=== PATIENT | male | born 1935 | race Caucasian/White ===

== ENCOUNTER 2016-11-16 13:40 | Emergency (ER) | payer MEDICARE, OTHER ==
[~2016-11-16] VITALS: Ht 172.7 cm; Wt 78.2 kg
[2016-11-16 13:43] VITALS: TEMP 97.5
[2016-11-16] MEDS ORDERED: TYLENOL 500MG500 MG PO (14:00)
[2016-11-16] MEDS ORDERED: CETAPHIL MOISTU1 CRE TP (14:00)
[2016-11-16] MEDS ORDERED: PROSCAR 5MG5 MG PO (14:01)
[2016-11-16] MEDS ORDERED: LANTUS SOLOS100 U/ML SQ (14:01)
[2016-11-16] MEDS ORDERED: GLUCOPHAGE1000 MG PO (14:02)
[2016-11-16] MEDS ORDERED: PRAVACHOL 40MG40 MG PO (14:02)
[2016-11-16] MEDS ORDERED: XARELTO15 MG PO (14:03)
[2016-11-16] MEDS ORDERED: PROTONIX 40MG T40 MG PO ×2 (14:11→18:25)
[2016-11-16 14:13] LABS: BASO % 0.4 % (0.0-2.0); EOS # 0.1 (0.0-0.7); EOS % 1.3 % (0-4.0); GRAN # 5.8 (1.4-6.5); GRAN % 64.6 % (42.2-75.2); HEMATOCRIT 46.6 % (42.0-52.0); LYMPH # 2.1 (1.2-3.4); LYMPH % 23.3 % (20.0-51.0); MEAN CELL VOLUME 90 fl (80.0-100.0); MEAN CORPUSCULAR HEMOGLOBIN 29 pg (27.0-31.0); MEAN CORPUSCULAR HGB CONC 32 g/dl (33.0-37.0); MONO # 0.9 (0.1-0.6); PLATELET COUNT 159 K/mm3 (130-400); RED BLOOD COUNT 5.16 M/mm3 (4.20-5.60); REDCELL DISTRIBUTION WIDTH-CV 12.8 % (11.5-14.5); WHITE BLOOD COUNT 8.9 K/mm3 (4.8-10.8)
[2016-11-16] MEDS ORDERED: XARELTO20 MG PO (14:18)
[2016-11-16 14:26] LABS: ADJUSTED CALCIUM 9.1 mg/dL (8.4-10.2); ALANINE AMINOTRANSFERASE 17 U/L (21-72); ALBUMIN 4.1 gm/dL (3.5-5.0); ALKALINE PHOSPHATASE 71 U/L (50-136); ANION GAP 13 mmol/L (7-16); BILIRUBIN,TOTAL 0.6 mg/dL (0.0-1.0); BLOOD UREA NITROGEN 25 mg/dL (9-20); CALCIUM 9.2 mg/dL (8.4-10.2); CARBON DIOXIDE 25 mmol/L (22-30); CHLORIDE 100 mmol/L (98-107); CREATININE, serum 1.28 mg/dL (0.66-1.25); GLUCOSE 258 mg/dL (74-106); LIPASE 138 U/L (23-300); POTASSIUM 4.8 mmol/L (3.4-5.0); SODIUM 138 mmol/L (137-145)
[2016-11-16 14:34] LABS: B-TYPE NATRIURETIC PEPTIDE 309 pg/mL (0-450)
[2016-11-16 14:47] LABS: TROPONIN-I < 0.012 ng/mL (0.000-0.034)
[2016-11-16 14:53] LABS: INR 1.4 (0.8-3.0); PROTHROMBIN TIME 15.3 SECONDS (9.7-12.8)
[2016-11-16 14:56] LABS: PARTIAL THROMBOPLASTIN TIME 35.4 SECONDS (26.0-37.0)
[2016-11-16] MEDS ORDERED: PRIL40 PO (18:17)
[2016-11-16] MEDS ORDERED: PRILOSEC 20MG20 MG PO (18:17)
[2016-11-16 18:28] VITALS: BP 127/75; PULSE 80
== END 2016-11-16 18:29 | disposition home or self-care (01) ==
LOC: COL.ER 13:40
PROVIDERS: Emergency Medicine
DX: R07.9 Chest pain, unspecified (principal); K21.9 Gastro-esophageal reflux disease without esophagitis; R10.13 Epigastric pain; Z86.718 Personal history of other venous thrombosis and embolism; Z79.01 Long term (current) use of anticoagulants; I25.10 Atherosclerotic heart disease of native coronary artery without angina pectoris; Z95.1 Presence of aortocoronary bypass graft; Z99.81 Dependence on supplemental oxygen

== ENCOUNTER 2016-11-24 18:28 | Emergency (ER) | payer MEDICARE, OTHER ==
[~2016-11-24] VITALS: Ht 172.7 cm; Wt 84.5 kg
[~2016-11-24 18:28] MED LIST: CETAPHIL MOISTU1 CRE TP; GLUCOPHAGE1000 MG PO; LANTUS SOLOS100 U/ML SQ; PRAVACHOL 40MG40 MG PO; PRIL40 PO; PRILOSEC 20MG20 MG PO; PROSCAR 5MG5 MG PO; PROTONIX 40MG T40 MG PO; TYLENOL 500MG500 MG PO; XARELTO15 MG PO; XARELTO20 MG PO
[2016-11-24 18:30] VITALS: TEMP 99.3
[2016-11-24 20:07] LABS: BASO % 0.2 % (0.0-2.0); EOS # 0.2 (0.0-0.7); EOS % 1.2 % (0-4.0); GRAN # 10.6 (1.4-6.5); GRAN % 87.1 % (42.2-75.2); HEMATOCRIT 47.5 % (42.0-52.0); HEMOGLOBIN 15.1 g/dl (13.5-18.0); LYMPH # 0.6 (1.2-3.4); LYMPH % 4.9 % (20.0-51.0); MEAN CELL VOLUME 88 fl (80.0-100.0); MEAN CORPUSCULAR HEMOGLOBIN 28 pg (27.0-31.0); MEAN CORPUSCULAR HGB CONC 32 g/dl (33.0-37.0); MEAN PLATELET VOLUME 10.2 fl (7.4-10.4); MONO # 0.7 (0.1-0.6); PLATELET COUNT 153 K/mm3 (130-400); RED BLOOD COUNT 5.38 M/mm3 (4.20-5.60); REDCELL DISTRIBUTION WIDTH-CV 12.8 % (11.5-14.5); WHITE BLOOD COUNT 12.1 K/mm3 (4.8-10.8)
[2016-11-24 20:17] LABS: ADJUSTED CALCIUM 8.8 mg/dL (8.4-10.2); ALBUMIN 3.9 gm/dL (3.5-5.0); BILIRUBIN,TOTAL 0.9 mg/dL (0.0-1.0); CALCIUM 8.7 mg/dL (8.4-10.2); CREATININE, serum 1.11 mg/dL (0.66-1.25); POTASSIUM 4.1 mmol/L (3.4-5.0); TOTAL PROTEIN 6.8 gm/dL (6.4-8.2)
[2016-11-24 20:33] LABS: PH 5 (5-8); SQUAMOUS EPITHELIAL None Seen /hpf; URINE APPEARANCE Clear; URINE BACTERIA None Seen /hpf; URINE BILIRUBIN Negative (NEGATIVE); URINE BLOOD 1+ (NEGATIVE); URINE COLOR Yellow; URINE GLUCOSE 1+ (NEGATIVE); URINE KETONE Trace (NEGATIVE); URINE RBC 0-2 /hpf; URINE UROBILINOGEN Negative (NEGATIVE); URINE WBC 0-2 /hpf
[2016-11-24 21:28] VITALS: BP 145/80; PULSE 79
== END 2016-11-24 21:31 | disposition home or self-care (01) ==
LOC: COL.ER 18:28
PROVIDERS: Family Medicine
DX: K59.00 Constipation, unspecified (principal); R14.0 Abdominal distension (gaseous); I25.10 Atherosclerotic heart disease of native coronary artery without angina pectoris
CPT/HCPCS: J7030; Q9967

== ENCOUNTER 2017-09-26 08:08 | Emergency (ER) | payer MEDICARE, OTHER ==
[~2017-09-26] VITALS: Ht 172.7 cm; Wt 78.2 kg
[2017-09-26 08:17] VITALS: BP 156/72; PULSE 95; TEMP 98
[2017-09-26] MEDS ORDERED: AMOXICILLIN 8751 TAB PO (08:40)
[2017-09-26] MEDS ORDERED: NORCO 325 MG-51 TAB PO (08:40)
== END 2017-09-26 09:15 | disposition home or self-care (01) ==
LOC: COL.ER 08:08
DX: L60.0 Ingrowing nail (principal); E11.9 Type 2 diabetes mellitus without complications; I10 Essential (primary) hypertension; Z79.4 Long term (current) use of insulin

== ENCOUNTER 2017-09-30 11:32 | Emergency (ER) | payer MEDICARE, OTHER ==
[~2017-09-30] VITALS: Ht 172.7 cm; Wt 78.2 kg
[~2017-09-30 11:32] MED LIST changes: +AMOXICILLIN 8751 TAB PO; +NORCO 325 MG-51 TAB PO
[2017-09-30 11:35] VITALS: BP 186/80; TEMP 98.3
[2017-09-30] MEDS ORDERED: NORCO 325 MG-51 TAB PO (12:42)
[2017-09-30 13:01] VITALS: PULSE 80
== END 2017-09-30 13:01 | disposition home or self-care (01) ==
LOC: COL.ER 11:32
DX: L60.0 Ingrowing nail (principal); E11.9 Type 2 diabetes mellitus without complications; Z79.4 Long term (current) use of insulin

== ENCOUNTER 2018-01-02 05:57 | Day surgery (SDC) | payer MEDICARE, OTHER ==
[2018-01-02] VITALS (10 sets, daily range): BP systolic 113–150; BP diastolic 50–64; PULSE 60–76; TEMP 97.5–98.5
[~2018-01-02] VITALS: Ht 172.8 cm; Wt 75.8 kg
== END 2018-01-02 15:21 | disposition home or self-care (01) ==
LOC: SDCO 05:57 → SURG 05:57 → SDCO 10:30
DX: T81.31XA Disruption of external operation (surgical) wound, not elsewhere classified, initial encounter (principal); I73.9 Peripheral vascular disease, unspecified; E78.00 Pure hypercholesterolemia, unspecified; M06.9 Rheumatoid arthritis, unspecified; G47.33 Obstructive sleep apnea (adult) (pediatric); I25.2 Old myocardial infarction; Z79.82 Long term (current) use of aspirin; Z79.02 Long term (current) use of antithrombotics/antiplatelets; Z79.4 Long term (current) use of insulin; Z90.49 Acquired absence of other specified parts of digestive tract; Z89.411 Acquired absence of right great toe; Z96.641 Presence of right artificial hip joint; Z95.1 Presence of aortocoronary bypass graft; Z85.828 Personal history of other malignant neoplasm of skin; Z86.711 Personal history of pulmonary embolism; Z87.891 Personal history of nicotine dependence; Z83.3 Family history of diabetes mellitus
CPT/HCPCS: OP; J1815; J2250; J2704; J2795; J3010

== ENCOUNTER → 2018-04-02 | Outpatient (CLI) | payer MEDICARE, OTHER ==
[~2018-04-02] MED LIST changes: +BACTRIM DS 8001 TAB PO; +CLEOCIN HCL300 MG PO; +CRESTOR5 MG PO; +GLUCOTROL 5M5 MG/TAB PO; +NORCO 325 MG-7.1 TAB PO; +NORVASC 5MG5 MG/TAB PO; +PLAVIX 75MG TAB75 MG PO; +PRINIVIL40 MG PO; +SEPTRA 400 MG-1 TAB PO; +ULTRAM 50MG TAB50 MG PO
== END ==
LOC: COL.LAB 10:21
DX: M25.511 Pain in right shoulder (principal); M25.512 Pain in left shoulder